=== PATIENT | female | born 1990 | race Caucasian/White ===

== ENCOUNTER 2021-04-12 08:37 | Emergency (ER) | payer BC, SELFPAY ==
[2021-04-12 08:59] VITALS: TEMP 36.7; BMI 37.3
[2021-04-12 09:03] VITALS: BP 125/64; PULSE 66; RESP 15; TEMP 36.7; O2SAT 98
--- NOTE | 2021-04-12 09:20 | W.ED.EAR ---
HPI - Ear Problem General: Chief complaint: Ear Stated complaint: R EAR PROBLEM Time Seen by Provider: 04/12/21 08:51 History of Present Illness: HPI Narrative: Patient is a 30-year-old female comes to the ED with right ear pain. Ear pain started within the last 24 hours. She had sinus congestion and drainage for approximately 2 weeks leading up to the ear pain. For a little over a week she was having some fullness and discomfort feeling in right ear but it was not painful until yesterday. Denies any fever, chills, chest pain, shortness of breath, abdominal pain, nausea/vomiting, bladder or bowel symptoms. Associated symptoms: Reports ear or mastoid pain (right ear); Denies fever(s), headache(s) or neck pain Review of Systems Const: Denies: fever(s), chills or fatigue Eyes: Denies: change in vision or eye discomfort ENMT: Reports: ear or mastoid pain (right ear); Denies: throat pain, odynophagia, nasal discharge or nasal congestion Card: Denies: chest pain, palpitations, edema, swelling of feet/ankles, dyspnea on exertion or orthopnea Resp: Denies: dyspnea, productive cough or non-productive cough GI: Denies: abdominal pain, nausea, vomiting, diarrhea, constipation or hematochezia : Denies: flank pain, dysuria or hematuria Musc: Denies: neck pain, back pain or extremity swelling Skin/Breast: Denies: rash or new lesions Neuro: Denies: headache(s), numbness in extremities or weakness in extremities Physical Exam Const: COMMON NORMALS: no acute distress, patient oriented x3, healthy appearing and alert GENERAL APPEARANCE: cooperative and comfortable NUTRITIONAL APPEARANCE: overweight HENMT: COMMON NORMALS: normocephalic and EAC's normal HEAD & SCALP: normocephalic EXTERNAL AUDITORY CANAL: EAC's normal TYMPANIC MEMBRANE: TM normal on the left and TM abnormal TM laterality: right Details: erythematous and fluid behind TM MOUTH: Normal oral and palatal mucosa present THROAT: posterior oropharynx normal and uvula midline Neck/C-Spine: COMMON NORMALS: supple GENERAL: Yes normal visual inspection Resp: COMMON NORMALS: normal respiratory effort, No retractions, No use of accessory muscles and clear to auscultation bilaterally AUSCULTATION: clear to auscultation bilaterally Cardio: COMMON NORMALS: regular rate, regular rhythm, S1 normal heart sound present, S2 normal heart sound present, No gallops present (Cardio), No clicks present (Cardio), No murmurs present (Cardio) and Peripheral pulses 2+ throughout RATE: regular rate RHYTHM: regular rhythm HEART SOUNDS: S1 normal heart sound present and S2 normal heart sound present PERIPHERAL PULSES: Peripheral pulses 2+ throughout GI: COMMON NORMALS: Normal to inspection, nondistended, normoactive bowel sounds present, Soft to palpation, non-tender and no masses PALPATION: Yes Soft to palpation : COMMON NORMALS: Yes no CVA tenderness BLADDER/KIDNEY EXAM: Yes no CVA tenderness Back/Pelvis: COMMON NORMALS: no CVA tenderness Extremity: COMMON NORMALS: normal to inspection Neuro: COMMON NORMALS: patient oriented x3 and moves all extremities SENSORIUM/ORIENTATION: Yes alert Skin: GENERAL SKIN EXAM: dry skin Course Vital Signs: Vital signs: Vital Signs Temperature 98.1 F 04/12/21 09:03 Pulse Rate 75 04/12/21 09:41 Respiratory Rate 15 04/12/21 09:03 Blood Pressure 138/77 04/12/21 09:41 Pulse Oximetry 98 04/12/21 09:41 MDM - Ear MDM Narrative: Medical decision making narrative: Patient is a 30-year-old female comes to the ED with right ear pain. Exam shows otitis media in the right ear. Patient was discharged home with prescription for amoxicillin and told to follow-up with PCP in 7 to 10 days for reevaluation. Return to ED precautions given. Patient understood and agree with plan. Discharge Plan Discharge Patient Disposition: Home Clinical Impression: Otitis media Qualifiers: Otitis media type: serous Chronicity: acute Laterality: right Recurrence: non-recurrent Qualified Code(s): H65.01 - Acute serous otitis media, right ear Condition: Stable Prescriptions: New amoxicillin 500 mg tablet 500 mg PO BID 10 Days Qty: 20 RF: 0 Discharge Orders: Discharge ED (Routine); Ordered 04/12/21 Ordered By: Sha Lopes Discharge Diet: Regular Discharge Activity: Resume usual activity Patient Instructions: Otitis Media - Adult Activity Restrictions/Additional Instructions: Follow-up with medical provider as directed in 7 to 10 days for reevaluation. Take medications as prescribed. Return to the ER or your medical provider if condition worsens. Please read and understand discharge instructions. Thank you for choosing [facility] for your healthcare needs today. Please realize this is an emergency room and that we are providing you with a medical screening exam and this may not be complete and all inclusive of all the testing and or work up that you may need to determine your ailment or severity of your illness. It is very important that you follow up as instructed or that you return to the Emergency Department should you have concerns or if your condition changes or worsens in any way. Coding Level of Care Code ED [employer] for Aniya Fwd Exam Comprehensive
[2021-04-12 09:41] VITALS: BP 138/77; PULSE 75; O2SAT 98
== END 2021-04-12 09:33 | disposition home or self-care (01) ==
LOC: ER 09:31
PROVIDERS: Emergency Provider Physician Assistant
DX: H65.01 Acute serous otitis media, right ear (principal)
CPT/HCPCS: 99282

== ENCOUNTER 2022-01-23 21:29 | Emergency (ER) | payer BC, MEDICAID, SELFPAY ==
[2022-01-23 21:45] VITALS: BP 155/89; PULSE 73; RESP 18; TEMP 36.9; O2SAT 97; BMI 39.1
--- NOTE | 2022-01-23 22:29 | ED_ITS ---
HPI - Ear Problem General: Chief complaint: Ear Stated complaint: Pain in Both Ears\Conjestion Time Seen by Provider: 01/23/22 22:27 History of Present Illness: 31-year-old female comes in today with complaints of bilateral ear pain, sinus pressure, and cough. Patient reports symptoms for 2 weeks. Patient does report fever of 101 at times. No acute distress is noted. Patient appears mildly unwell but not toxic. Patient appears in no pain. Associated symptoms: Reports ear or mastoid pain and fever(s) Review of Systems Const: Reports: fever(s) ENMT: Reports: ear or mastoid pain and sinus pain Resp: Reports: non-productive cough PFSH ED PFSH: Medical History (Updated 01/23/22 @ 22:37 by JD Macdonald) Encounter for medical clearance for patient hold Social History (Updated 12/30/21 @ 09:01 by Genaro Ross LPN) Smoking and tobacco status: current every day smoker cigarettes Packs smoked per day: 1 Years cigarettes smoked: 17 Quit status (tobacco): has tried quititng Number of times tried to quit tobacco: 5 Second hand smoke exposure: Yes Alcohol intake: current Alcohol intake frequency: holidays/special occasions only Alcohol type: hard liquor Desire information about alcohol rehabilitation?: Yes Counseling given: No Physical Exam Const: COMMON NORMALS: alert HENMT: COMMON NORMALS: normocephalic HEAD & SCALP: normocephalic NOSE: Nasal discharge present TYMPANIC MEMBRANE: TM abnormal TM laterality: right Details: retracted and left Details: bulging MOUTH: Normal oral and palatal mucosa present THROAT: posterior oropharynx abnormal cobblestoning Lymph: LYMPHATIC: no lymphadenopathy noted Resp: COMMON NORMALS: normal respiratory effort and clear to auscultation bilaterally AUSCULTATION: clear to auscultation bilaterally Cardio: COMMON NORMALS: regular rate RATE: regular rate Extremity: COMMON NORMALS: normal to inspection Neuro: SENSORIUM/ORIENTATION: Yes alert Skin: COMMON NORMALS: no rashes or lesions noted GENERAL SKIN EXAM: no rashes or lesions noted Course Vital Signs: Vital signs: Vital Signs Temperature 98.5 F 01/23/22 21:45 Pulse Rate 73 01/23/22 21:45 Respiratory Rate 18 01/23/22 21:45 Blood Pressure 155/89 01/23/22 21:45 Pulse Oximetry 97 01/23/22 21:45 MDM - Ear Medical Decision Making 31-year-old female comes in today for complaints of bilateral ear discomfort. Patient reports symptoms for 2 weeks. With occasional cough and fever. On exam bilateral tympanic membranes noted no redness but the right one was retracted and the left was bulging. Patient has posterior nasal drainage with cobblestoning of the pharynx. Patient has drainage in bilateral nose and frontal facial discomfort with palpation. Differential diagnosis includes upper respiratory infection, allergic rhinitis, rhinosinusitis. Since patient symptoms have been persistent for the last 2 weeks we will go ahead and treat with dexamethasone 10 mg times once, and with doxycycline twice a day for 7 days. Patient was also placed on some Flonase nasal spray 1 spray each nostril twice a day until symptoms resolved. Recommend follow-up with primary care for persistent symptoms return to ER for new concerns. Discharge Plan Discharge Patient Disposition: Home Clinical Impression: Sinusitis, acute Qualifiers: Sinusitis location: unspecified location Recurrence: non-recurrent Qualified Code(s): J01.90 - Acute sinusitis, unspecified Condition: Stable Prescriptions: New Flonase Allergy Relief 50 mcg/actuation spray,suspension 1 spray intranasal BID Qty: 16 0RF Rx Instructions: administer into each nostril doxycycline monohydrate 100 mg capsule 100 mg PO BID 7 Days Qty: 14 0RF No Action bupropion HCl [Wellbutrin XL] 150 mg tablet extended release 24 hr 150 mg PO QAM Qty: 30 2RF medroxyprogesterone [Depo-Provera] 150 mg/mL suspension 150 mg IM .Q 3 Months 0RF Discharge Orders: Discharge ED (Routine); Ordered 01/23/22 Ordered By: Kenny Sánchez Discharge Diet: Usual diet Discharge Activity: Increase activity as tolerated Patient Instructions: Rhinosinusitis (ED) Activity Restrictions/Additional Instructions: Home and rest. Drink plenty of fluids. Activity as tolerated. Follow-up with primary care for further instruction. Return to ER for new concerns. Coding Level of Care Code ED [employer] Man for Aniya Bryan
[2022-01-23] MEDS: dexamethasone 10 mg/mL INJ IM (22:39)
[2022-01-23] MEDS: doxycycline 100 mg Tablet PO (22:39)
[2022-01-23 22:48] VITALS: RESP 16; O2SAT 98
== END 2022-01-23 22:49 | disposition home or self-care (01) ==
PROVIDERS: Emergency Provider Nurse Practitioner Family
DX: J01.90 Acute sinusitis, unspecified (principal); F17.210 Nicotine dependence, cigarettes, uncomplicated
CPT/HCPCS: 96372; 99284; J1100